=== PATIENT | female | born 1960 | race Caucasian/White ===

== ENCOUNTER → 2023-01-04 | Outpatient (CLI) | payer SELFPAY, OTHER ==
--- NOTE | 2023-01-04 10:36 | ECHOD_ITS ---
Reason For Study: Aortic Stenosis Procedure This was a 2D Doppler, Color Flow transthoracic echocardiogram. Exam performed in department. Left Ventricle Normal LV size. Left ventricular systolic function is normal. The estimated ejection fraction is 70 %. No regional wall motion abnormalities noted. Right Ventricle Normal RV size. Normal systolic function. Atria Normal left atrium. Normal right atrium. Mitral Valve There is moderate to severe mitral annular calcification. Mild (1+) eccentric mitral valve insufficiency. Tricuspid Valve Normal tricuspid valve. Mild (1+) tricuspid valve insufficiency. Pulmonary artery systolic pressure is 30 mmHg. Aortic Valve Trisinus/trileaflet aortic valve. Moderate focal aortic valve calcification. Peak aortic valve gradient 91 mmHg. Mean aortic valve gradient 62 mmHg. Critical aortic stenosis. Mild (1+) aortic valve insufficiency. Great Vessels Normal aortic root. The pulmonary artery is normal size. Normal inferior vena cava. Pericardium/Pleural No pericardial effusion. MMode/2D Measurements & Calculations LVIDd: 3.6 cm IVSd: 1.5 cm LVOT diam: 1.9 cm LVIDs: 1.6 cm LVPWd: 1.1 cm LVOT area: 2.9 cm2 RVDd: 3.3 cm FS: 56.2 % Ao root diam: 2.5 cm LAV(MOD-bp): 57.9 ml LVAd ap4: 21.5 cm2 LAV(MOD-bp) Indexed: 30.8 ml/m2 LVLd ap4: 7.2 cm LAV(MOD-sp2): 66.4 ml EDV(MOD-sp4): 53.3 ml LAV(MOD-sp4): 47.3 ml EDV(sp4-el): 54.5 ml LVAs ap4: 12.0 cm2 LVLs ap4: 6.0 cm ESV(MOD-sp4): 21.1 ml ESV(sp4-el): 20.4 ml EF(MOD-sp4): 60.4 % EF(sp4-el): 62.5 % SV(MOD-sp4): 32.2 ml SV(MOD-sp2): 39.9 ml LVAd ap2: 23.3 cm2 LVLd ap2: 7.1 cm EDV(MOD-sp2): 64.2 ml EDV(sp2-el): 64.2 ml LVAs ap2: 12.8 cm2 LVLs ap2: 6.2 cm ESV(MOD-sp2): 24.3 ml ESV(sp2-el): 22.5 ml EF(MOD-sp2): 62.1 % SV(sp4-el): 34.1 ml LA A4 area: 17.7 cm2 LA dimension(2D): 4.5 cm RA A4 area: 13.8 cm2 Time Measurements MV dec time: 0.36 sec Doppler Measurements & Calculations MV E max vernon: 162.4 cm/sec Lat Peak E' Vernon: 5.6 cm/sec Med Peak E' Vernon: 6.3 cm/sec MV A max vernon: 179.3 cm/sec E/E' lat: 28.8 E/E' med: 25.8 MV E/A: 0.91 MV V2 max: 163.6 cm/sec MV dec slope: 457.4 cm/sec2 Ao V2 max: 474.4 cm/sec MV max P.7 mmHg Ao max P.2 mmHg MV V2 mean: 121.3 cm/sec Ao V2 mean: 379.3 cm/sec MV mean P.2 mmHg Ao mean P.3 mmHg MV V2 VTI: 50.3 cm Ao V2 VTI: 110.5 cm MVA(VTI): 1.8 cm2 AV (velocity ratio): 0.29 JOS(I,D): 0.83 cm2 JOS(V,D): 0.87 cm2 AI max vernon: 449.9 cm/sec LV V1 max: 145.1 cm/sec SV(LVOT): 91.7 ml AI max P.0 mmHg LV V1 max P.4 mmHg AI dec slope: 303.0 cm/sec2 LV V1 mean P.4 mmHg AI P1/2t: 434.9 msec LV V1 mean: 112.4 cm/sec LV V1 VTI: 32.1 cm PA V2 max: 102.6 cm/sec TR max vernon: 254.4 cm/sec PA max PG (full): 1.9 mmHg TR max P.9 mmHg ECHO/Echo Complete Interpretation Summary Normal LV size. Left ventricular systolic function is normal. The estimated ejection fraction is 70 %. Moderate focal aortic valve calcification. Mean aortic valve gradient 62 mmHg. Peak aortic valve gradient 91 mmHg. Critical aortic stenosis. Ordering Physician: Henrik Monk Referring Physician: Henrik Monk Performed By: Shanel Hudson
== END | disposition home or self-care (01) ==
LOC: CVS 10:35
PROVIDERS: PCP Family Medicine; Referring Provider Internal Medicine Cardiovascular Disease; Visit Provider Internal Medicine Cardiovascular Disease
DX: Q23.1 Congenital insufficiency of aortic valve (principal)
CPT/HCPCS: 93306

== ENCOUNTER 2023-01-09 06:29 | Day surgery (SDC) | payer SELFPAY, OTHER ==
[2023-01-06 08:45] VITALS: BMI 42.4
--- NOTE | 2023-01-09 08:48 | CL.D_ITS ---
Patient Name: RASHAUN DUFF Study Date: 01/09/2023 Performing: Henrik Monk MD Ht: 59 inches 149.86 cm : 1960 Wt: 209.99 lbs 95.25 kg Age: 62 Gender: female BSA: 1.88 PROCEDURE(S) PERFORMED [id number])C/COR CLINICAL PROFILE AND INDICATIONS Indications: Valvular Disease Heart Failure: None Stress/Imaging Stress/Image Study Performed: No CAD Presentations: No Sxs, no angina. CONCLUSIONS Severe aortic stenosis. Severely calcified proximal left anterior descending artery with mild to moderate ostial left main and moderate LAD stenosis. Moderate diffuse right coronary artery stenosis present. RECOMMENDATIONS Surgery consult for Valve Replacement surgery DESCRIPTION OF PROCEDURE The patient arrived to the procedure lab. The risks and benefits of the procedure as well as a full description of our services here and current unavailability of surgical backup were fully explained to the patient and/or their significant other prior to the catheterization. The Timeout was completed, verifying the correct patient and procedure. The patient's procedural site was prepped and draped in the usual fashion. Local anesthetic was given subcutaneously to right radial region with Lidocaine 2%. Using a modified Seldinger technique, arterial access was obtained via the right radial artery, a 6Fr sheath was inserted. Left Coronary Artery selective angiography was performed in multiple views using a 5 Fr. 4.0 [place] catheter. Right Coronary Artery selective angiography was then performed in multiple views using a 5 Fr. JR 5 catheter.The arterial sheath was pulled and a TR Band was applied for hemostasis CORONARY ANGIOGRAPHY DOMINANCE: Right Dominant LEFT HEART ASSESSMENT Left Ventricular Ejection Fraction: by Echo 65 % Normal LV wall motion Normal Left Ventricular systolic function LEFT MAIN: Ostial 30 to 40% and distal 40% LEFT ANTERIOR DESCENDING ARTERY: Diffusely diseased and calcified vessel with areas of up to 60% stenosis noted in the midsegment. CIRCUMFLEX ARTERY: Mild luminal irregularities RIGHT CORONARY ARTERY: Moderate luminal irregularities up to 50% VALVE FINDINGS: Aortic Valve Calcification - severe Aortic Valve Stenosis - severe COMPLICATIONS No Complications PROCEDURE MEDICATIONS Fentanyl 50 mcg IV Versed 1 mg IV Versed 1 mg IV Oxygen: 2 L/min via nasal cannula Heparin given IA 01/09/2023 08:09:54 Verapamil 2.5mg, Ntg 100mcgs, 3000 units of Heparin given IA 01/09/2023 08:09:54 SUMMARY OF HEMODYNAMIC DATA Time AIR REST ECG 07:08:06 AO 133/71 (97) SA 08:12:20 AIR REST 08:47:16 Signed By Henrik Monk MD On 01/09/2023 08:47:31 Henrik Monk MD
== END 2023-01-09 11:00 | disposition home or self-care (01) ==
PROVIDERS: PCP Family Medicine; Referring Provider Internal Medicine Cardiovascular Disease; Visit Provider Internal Medicine Cardiovascular Disease
DX: I35.0 Nonrheumatic aortic (valve) stenosis (principal); I25.10 Atherosclerotic heart disease of native coronary artery without angina pectoris; E03.9 Hypothyroidism, unspecified; Z79.899 Other long term (current) drug therapy
CPT/HCPCS: 93454; 99152; 99153; J7040; Q9967; A4216; C1769; C1894

== ENCOUNTER → 2024-07-08 | Outpatient (CLI) | payer OTHER, SELFPAY ==
[2024-07-08 11:03] LABS: Absolute Lymphocyte Count 1.14 X10^3/uL (0.83-4.51); Absolute Neutrophil Count 4.5 X10^3/uL (2.0-7.7); Basophil# 0.04 X10^3/uL; Basophil% 0.6 % (0-1); Eosinophil# 0.13 X10^3/uL; Hematocrit 41.9 % (37-47); Hemoglobin 13.7 g/dL (12.0-15.0); Lymphocyte # 1.14 X10^3/ul (0.83-4.51); Lymphocyte % 17.6 % (19-41); Mean Corp Hgb Conc 32.7 g/dL (32-36); Mean Corpuscular Volume 91.7 fL (81-99); Monocyte# 0.64 X10^3/uL; Monocyte% 9.9 % (0-10); NRBC Flagged by Analyzer 0 % (0-5); Neutrophil # 4.49 X10^3/uL (2.7-7.7); Neutrophil % 69.1 % (47-70); Platelet Count 141 K/mm3 (150-450); RBC Distribution Width CV 15.8 % (11.6-14.6); RBC Distribution Width SD 51.3 fl (35.1-43.9); Red Blood Count 4.57 M/mm3 (4.2-5.4); White Blood Count 6.5 K/mm3 (4.4-11.0)
[2024-07-08 11:44] LABS: ALB/GLOB Ratio 0.9 RATIO (0.9-2.4); AST(SGOT) 32 U/L (15-37); Alanine Aminotransfer ALT/SGPT 31 U/L (13-56); Albumin, Serum 3.6 g/dL (3.2-5.0); Alkaline Phosphatase 100 U/L (45-117); Anion Gap 8 (5-15); BUN 21 mg/dL (7-18); Calcium,Total 8.8 mg/dL (8.5-10.1); Chloride 108 mmol/L (98-107); Cholesterol 274 mg/dL (200); Creatinine, Serum 0.84 mg/dL (0.55-1.02); EST Glomerular Filtration Rate 73 mL/min (>60); Est Glom Filt Rate - Afr Amer 88 mL/min (>60); Globulin 3.8 g/dL (2.2-4.2); Glucose 86 mg/dL (74-106); High Density Lipoprotein 51 mg/dL; Potassium 3.9 mmol/L (3.5-5.1); Protein, Total 7.4 g/dL (6.4-8.2); Sodium Level 140 mmol/L (136-145); Triglycerides 170 mg/dL; Very Low Density Lipoprotein 34 mg/dL (5-40)
== END | disposition home or self-care (01) ==
LOC: LAB 10:29
PROVIDERS: PCP Family Medicine; Referring Provider Nurse Practitioner Family; Visit Provider Nurse Practitioner Family
DX: E78.2 Mixed hyperlipidemia (principal); Z95.1 Presence of aortocoronary bypass graft; Z95.2 Presence of prosthetic heart valve
CPT/HCPCS: 36415; 80053; 80061; 85025

== ENCOUNTER → 2024-08-06 | Outpatient (CLI) | payer OTHER, SELFPAY ==
--- NOTE | 2024-08-06 12:58 | ECHOD_ITS ---
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 Myocardial strain analysis was performed in this exam to aid in the assessment of cardiac function. Exam performed in department. Left Ventricle Normal LV size. Left ventricular systolic function is normal. The left ventricular ejection fraction is 60 %. Stage 1 diastolic dysfunction. No regional wall motion abnormalities noted. Right Ventricle Normal RV size. Normal systolic function. Mitral Valve There is moderate mitral annular calcification. Trivial eccentric mitral valve insufficiency. Tricuspid Valve Normal tricuspid valve. Mild to moderate (1-2+) tricuspid valve insufficiency. Pulmonary artery systolic pressure is 54 mmHg. Aortic Valve Peak aortic valve gradient 40 mmHg. Mean aortic valve gradient 21 mmHg. Bioprosthetic aortic valve. Pulmonic Valve Normal pulmonic valve. Great Vessels Normal aortic root. The pulmonary artery is normal size. Inferior vena cava collapse with respiration. Pericardium/Pleural No pericardial effusion. MMode/2D Measurements & Calculations LVIDd: 3.4 cm IVSd: 1.4 cm LVOT diam: 1.6 cm LVIDs: 1.8 cm LVPWd: 1.1 cm LVOT area: 1.9 cm2 RVDd: 3.7 cm FS: 45.2 % LAV(MOD-bp): 63.0 ml LA A4 area: 20.0 cm2 LA dimension(2D): 4.3 cm LAV(MOD-bp) Indexed: 33.0 ml/m2 LAV(MOD-sp2): 69.5 ml LAV(MOD-sp4): 55.2 ml RA A4 area: 17.4 cm2 TAPSE: 1.6 cm Time Measurements MV dec time: 0.28 sec Doppler Measurements & Calculations MV E max vernon: 157.3 cm/sec Lat Peak E' Vernon: 8.9 cm/sec Med Peak E' Vernon: 6.0 cm/sec MV A max vernon: 190.0 cm/sec E/E' lat: 17.8 E/E' med: 26.1 MV E/A: 0.83 MV V2 max: 209.5 cm/sec MV P1/2t max vernon: 174.4 cm/sec Ao V2 max: 314.6 cm/sec MV max P.6 mmHg MV P1/2t: 92.9 msec Ao max P.6 mmHg MV V2 mean: 134.4 cm/sec MV dec slope: 549.9 cm/sec2 Ao V2 mean: 212.7 cm/sec MV mean P.4 mmHg MVA(P1/2t): 2.4 cm2 Ao mean P.9 mmHg MV V2 VTI: 51.8 cm Ao V2 VTI: 59.6 cm MVA(VTI): 0.99 cm2 AV (velocity ratio): 0.45 JOS(I,D): 0.86 cm2 JOS(V,D): 0.82 cm2 LV V1 max: 134.0 cm/sec SV(LVOT): 51.1 ml TR max vernon: 352.5 cm/sec LV V1 max P.2 mmHg TR max P.7 mmHg LV V1 mean P.9 mmHg LV V1 mean: 91.7 cm/sec LV V1 VTI: 26.6 cm ECHO/Echo Complete Interpretation Summary Normal LV size. Left ventricular systolic function is normal. The left ventricular ejection fraction is 60 %. Bioprosthetic aortic valve. Mean aortic valve gradient 21 mmHg. Stage 1 diastolic dysfunction. Ordering Physician: Nam Myers Referring Physician: Nam Myers Performed By: Thomas Menezes RCS
== END | disposition home or self-care (01) ==
PROVIDERS: PCP Family Medicine; Referring Provider Nurse Practitioner Family; Visit Provider Nurse Practitioner Family
DX: R94.31 Abnormal electrocardiogram [ECG] [EKG] (principal); Z95.2 Presence of prosthetic heart valve
CPT/HCPCS: 93225; 93226; 93306